=== PATIENT | male | born 1955 | race Caucasian/White ===

== ENCOUNTER → 2016-06-27 | Outpatient (CLI) | payer BC ==
[2016-06-27 18:10] LABS: BASOPHILS # (AUTO) 0.04 10*3/UL; BASOPHILS % (AUTO) 0.5 % (0-1); EOSINOPHILS % (AUTO) 3.1 % (0-8); HEMATOCRIT 51.7 % (42.0-52.0); IMM GRAN % (AUTO) 0.2 % (0-5); IMM GRAN# (AUTO) 0.02 10*3/UL; LYMPHOCYTES # (AUTO) 2.88 10*3/uL; LYMPHOCYTES % (AUTO) 35.8 % (10-50); MEAN CORPUSCULAR HGB CONC 34.8 g/dL (33-37); MEAN PLATELET VOLUME 10.4 FL (7.4-12.2); NEUTROPHILS # (AUTO) 4.05 10*3/UL; NEUTROPHILS % (AUTO) 50.4 % (50-80); RDW COEFFICIENT OF VARIATION 13.5 % (11.5-14.5); RED BLOOD COUNT 6.01 10^6/uL (4.70-6.10); WHITE BLOOD COUNT 8.04 10^3/uL (4.8-10.8)
[2016-06-27 18:13] LABS: PLATELET MORPHOLOGY COMMENT NORMAL MORPHOLOGY (NORM)
[2016-06-27 18:26] LABS: CREATININE, URINE 43.9 MG/DL (15-500); HEMOGLOBIN A1C 8.85 % (4.2-6.0); MEAN BLOOD GLUCOSE (CALC) 208.705 mg/dL
== END ==
LOC: LAB 15:16
PROVIDERS: ATTEND Internal Medicine
DX: E11.9 Type 2 diabetes mellitus without complications (principal); D75.1 Secondary polycythemia
CPT/HCPCS: 82043; 83036; 85025

== ENCOUNTER → 2016-10-02 | Outpatient (CLI) | payer BC ==
[2016-10-02 17:49] LABS: BLOOD UREA NITROGEN 15 mg/dL (7-22); BUN/CREATININE RATIO 18.75 (6-20); CALCIUM 9.5 mg/dL (8.7-10.7); CHOL/HDL RATIO 3.36 RATIO (0-4.0); EST GLOMERULAR FILTRATION > 60 (>60 ml/min/1.73m(2)); HDL CHOLESTEROL 46 mg/dL (40-150); SERUM ALBUMIN 4.3 g/dL (3.5-4.8); SERUM CHOLESTEROL 155 mg/dL (120-200)
[2016-10-02 17:57] LABS: CREATININE, URINE 44.4 MG/DL (15-500)
== END ==
LOC: LAB 08:59
PROVIDERS: ATTEND Internal Medicine
DX: E11.9 Type 2 diabetes mellitus without complications (principal); E78.5 Hyperlipidemia, unspecified; I10 Essential (primary) hypertension
CPT/HCPCS: 80053; 80061; 82043; 82550; 83036